=== PATIENT | female | born 1980 | race Caucasian/White ===

== ENCOUNTER 2021-05-07 07:42 | Emergency (ER) | payer OTHER ==
[~2021-05-07 07:42] MED LIST: CARAFATE1 GM PO; KURVELO PO
[2021-05-07] MEDS ORDERED: NAPROXEN500 MG PO (10:05)
== END 2021-05-07 10:25 | disposition home or self-care (01) ==
LOC: FER 07:42
DX: S20.219A Contusion of unspecified front wall of thorax, initial encounter (principal); S00.81XA Abrasion of other part of head, initial encounter; S40.212A Abrasion of left shoulder, initial encounter; Z88.2 Allergy status to sulfonamides; V79.88XA Bus occupant (driver) (passenger) injured in other specified transport accidents, initial encounter; Y93.89 Activity, other specified; Y92.410 Unspecified street and highway as the place of occurrence of the external cause
CPT/HCPCS: 71111; 72170; 73030